=== PATIENT | female | born 1950 | race Hispanic/Latino ===

== ENCOUNTER → 2019-02-18 | Outpatient (CLI) | payer OTHER | END | disposition home or self-care (01) | LOC: RAH 10:00 | PROVIDERS: ATTEND Family Medicine | DX: Z12.31 Encounter for screening mammogram for malignant neoplasm of breast (principal) | CPT/HCPCS: 77067 ==

== ENCOUNTER 2023-10-22 17:33 | Emergency (ER) | payer OTHER ==
[~2023-10-22] VITALS: Ht 152.4 cm; Wt 69.9 kg
[2023-10-22 17:41] VITALS: BP 166/79; PULSE 64; RESP 18
[2023-10-22] MEDS ORDERED: ACETAMINOPHEN 500 MG TABLET PO ONE (19:30)
[2023-10-22] MEDS ORDERED: CEPH500T PO (20:51)
[2023-10-22] MEDS ORDERED: NEOMY SULF/BACITRA/POLYMYXIN B 1 EACH PACKET TP ONE (21:00)
== END 2023-10-22 21:18 | disposition home or self-care (01) ==
LOC: EDH 17:33
DX: S00.83XA Contusion of other part of head, initial encounter (principal); E78.00 Pure hypercholesterolemia, unspecified; Z90.49 Acquired absence of other specified parts of digestive tract; Z90.710 Acquired absence of both cervix and uterus; W18.39XA Other fall on same level, initial encounter; Y93.89 Activity, other specified; Y92.89 Other specified places as the place of occurrence of the external cause; Y99.8 Other external cause status
CPT/HCPCS: 70486